=== PATIENT | female | born 1960 | race Caucasian/White ===

== ENCOUNTER 2023-01-30 15:20 | Emergency (ER) | payer SELFPAY ==
[~2023-01-30] VITALS: Ht 162.6 cm; Wt 75.0 kg
[2023-01-30 15:30] VITALS: BP 155/83
[2023-01-30] MEDS ORDERED: OMEP10 PO (15:32)
[2023-01-30] MEDS ORDERED: ATOR10TA PO (15:32)
[2023-01-30] MEDS ORDERED: SULF-261 PO (15:42)
== END 2023-01-30 17:33 | disposition home or self-care (01) ==
LOC: EMS 15:22
DX: L03.113 Cellulitis of right upper limb (principal); L02.413 Cutaneous abscess of right upper limb; E11.9 Type 2 diabetes mellitus without complications; I10 Essential (primary) hypertension; F17.210 Nicotine dependence, cigarettes, uncomplicated; F12.90 Cannabis use, unspecified, uncomplicated; Z98.890 Other specified postprocedural states; Z76.0 Encounter for issue of repeat prescription
CPT/HCPCS: 99283; Z7502

== ENCOUNTER 2023-02-01 18:39 | Inpatient (IN) | payer MEDICARE ==
[~2023-02-01] VITALS: Ht 162.6 cm; Wt 66.8 kg
[~2023-02-01 18:39] MED LIST: ATOR10TA PO; OMEP10 PO; SULF-261 PO
[2023-02-01] MEDS ORDERED: PERMETHRIN 5% 60 GM CREAM TP ONE (20:30)
[2023-02-02 00:51] LABS: AMPHET/METH SCREEN,URINE NEGATIVE (NEGATIVE); BARBITURATE SCREEN, URINE NEGATIVE (NEGATIVE); BENZODIAZEPINES SCREEN,URINE NEGATIVE (NEGATIVE); CANNABINOID SCREEN,URINE POSITIVE (NEGATIVE); COCAINE SCREEN,URINE NEGATIVE (NEGATIVE); METHADONE SCREEN, URINE NEGATIVE (NEGATIVE); OPIATE SCREEN,URINE NEGATIVE (NEGATIVE); PHENCYCLIDINE SCREEN,URINE NEGATIVE (NEGATIVE)
[2023-02-02] MEDS ORDERED: HALOPERIDOL 5 MG TABLET PO ONE (01:45)
[2023-02-02] MEDS ORDERED: DiphenhydrAMINE HCL 25 MG CAPSULE PO ONE (01:45)
[2023-02-02] MEDS ORDERED: LORazepam 2 MG TABLET PO ONE (01:45)
[2023-02-02 01:58] LABS: COVID AG,FIA SOURCE NASOPHARYNGEAL
[2023-02-02] MEDS ORDERED: ALBUTEROL SULFATE HFA 90 MCG/PUFF 8 GM INHALER IH ONE (02:45)
[2023-02-02 03:13] LABS: BASOPHILS % (AUTO) 1.1 % (0.0-2.0); EOSINOPHILS % (AUTO) 3.1 % (1.0-6.0); HEMOGLOBIN 12.3 g/dL (12.0-16.0); LYMPHOCYTES # (AUTO) 3.8 K/uL (1.0-4.8); LYMPHOCYTES % (AUTO) 45.8 % (22.0-44.0); MEAN CORPUSCULAR HEMOGLOBIN 28.6 pg (26.0-34.0); MEAN CORPUSCULAR HGB CONC 33.3 G/dL (31.0-37.0); MEAN CORPUSCULAR VOLUME 86 fL (80-100); MONOCYTES # (AUTO) 0.6 K/uL (0.1-1.0); MONOCYTES % (AUTO) 7.5 % (2.0-9.0); NEUTROPHILS # (AUTO) 3.5 K/uL (1.8-7.7); NEUTROPHILS % (AUTO) 42.5 % (40.0-70.0); PLATELET COUNT (AUTO) 372 K/uL (150-450); RED CELL DISTRIBUTION WIDTH 15.2 % (11.5-14.5)
[2023-02-02 03:29] LABS: ANION GAP 5 mmol/L (8-16); CALCIUM, TOTAL 8.8 mg/dL (8.8-10.5); CARBON DIOXIDE 29 mmol/L (22-29); CHLORIDE 102 mmol/L (98-107); CREATININE 1.05 mg/dL (0.60-1.30); GLOMERULAR FILTR. RATE CALC 53 mL/min (>60); GLUCOSE,RANDOM 197 mg/dL (70-110); POTASSIUM 4.3 mmol/L (3.5-5.1); SODIUM SERUM 136 mmol/L (136-145)
[2023-02-02 03:31] LABS: ALANINE AMINOTRANSFERASE 21 U/L (12-78); ALBUMIN 2.8 g/dL (3.4-5.0); ALKALINE PHOSPHATASE 91 U/L (46-116); ASPARTATE AMINOTRANSFERASE 18 U/L (15-37); BILIRUBIN,TOTAL 0.4 mg/dL (0.1-1.0); TOTAL PROTEIN, SERUM 6.7 g/dL (6.4-8.2)
[2023-02-02 04:49] LABS: APPEARANCE,URINE CLEAR (CLEAR); BILIRUBIN,URINE NEGATIVE (NEGATIVE); GLUCOSE, URINE (UA) 70-100 mg/dL (NEGATIVE); KETONES,URINE NEGATIVE (NEGATIVE); LEUKOCYTE ESTERASE ,URINE NEGATIVE (NEGATIVE); NITRATE,URINE NEGATIVE (NEGATIVE); OCCULT BLOOD,URINE NEGATIVE (NEGATIVE); PROTEIN,URINE NEGATIVE (NEGATIVE); SPECIFIC GRAVITIY, URINE 1.019 (1.003-1.030); UROBILINOGEN,URINE <=1.0 mg/dL (<=1.0)
[2023-02-02 05:00] LABS: BACTERIA,URINE None Seen /HPF (None Seen); RBC,URINE None Seen /HPF (0-2); SQUAMOUS EPITHELIAL CELL,UR Few /LPF (None Seen); WBC,URINE None Seen /HPF (0-5)
[2023-02-02 16:20] VITALS: BP 124/70
[2023-02-02] MEDS ORDERED: MAG HYDROX/AL HYDROX/SIMETH ES 30 ML SUSPENSION UDCUP PO PRN (16:30)
[2023-02-02] MEDS ORDERED: LOPERAMIDE HCL 2 MG CAPSULE PO PRN (16:30)
[2023-02-02] MEDS ORDERED: GLUCAGON,HUMAN RECOMBINANT 1 MG VIAL IM PRN (16:30)
[2023-02-02] MEDS ORDERED: BACITRACIN 28 GM OINTMENT TP PRN (16:30)
[2023-02-02] MEDS ORDERED: OMEPRAZOLE 20 MG CAPSULE PO PRN (16:30)
[2023-02-02] MEDS ORDERED: GuaiFENesin/D-METHORPHAN/PHENYLEPH 5 ML LIQUID ORAL.SYG PO PRN (16:30)
[2023-02-02] MEDS ORDERED: DOCUSATE SODIUM 100 MG CAPSULE PO PRN (16:30)
[2023-02-02] MEDS ORDERED: CloNIDine HCL 0.1 MG TABLET PO PRN (16:30)
[2023-02-02] MEDS ORDERED: PETROLATUM,WHITE 28 GM JELLY TP PRN (16:30)
[2023-02-02] MEDS ORDERED: MAGNESIUM HYDROXIDE SUSPENSION 30 ML UDCUP PO PRN (16:30)
[2023-02-02] MEDS: CEPHALEXIN MONOHYDRATE 500 MG CAPSULE PO SCH (16:41)
[2023-02-02] MEDS: METOPROLOL TARTRATE 25 MG TABLET PO SCH (16:42)
[2023-02-02] MEDS: ALBUTEROL SULFATE HFA 90 MCG/PUFF 8 GM INHALER IH PRN (16:42)
[2023-02-02] MEDS: NICOTINE 21 MG/24 HOUR PATCH TD SCH (16:42)
[2023-02-02] MEDS: MetFORMIN HCL 500 MG TABLET PO SCH (16:42)
[2023-02-02] MEDS: IBUPROFEN 600 MG TABLET PO PRN (16:42)
[2023-02-02] MEDS ORDERED: PNEUMOCOCCAL VACCINE POLYVALENT 0.5 ML VIAL [PPSV23] IM. ONE (16:45)
[2023-02-02] MEDS: INSULIN LISPRO 100 UNITS/ML SQ PRN ×2 (16:54→20:27)
[2023-02-02 17:06] LABS: GLUCOMETER DEV NAME(LOC) BV2X.2; GLUCOSE,POINT OF CARE 196 MG/DL (70-110)
[2023-02-02 20:05] VITALS: BP 118/68
[2023-02-02] MEDS: ATORVASTATIN CALCIUM 20 MG TABLET PO SCH (20:18)
[2023-02-02 20:26] LABS: GLUCOMETER DEV NAME(LOC) BV2X.2; GLUCOSE,POINT OF CARE 164 MG/DL (70-110)
[2023-02-03 04:15] VITALS: BP 130/82
[2023-02-03] MEDS: IBUPROFEN 600 MG TABLET PO PRN ×2 (04:19→11:13)
[2023-02-03] MEDS: ALBUTEROL SULFATE HFA 90 MCG/PUFF 8 GM INHALER IH PRN ×2 (04:31→11:59)
[2023-02-03 06:21] LABS: GLUCOMETER DEV NAME(LOC) BV2X.2; GLUCOSE,POINT OF CARE 162 MG/DL (70-110)
[2023-02-03] MEDS: INSULIN LISPRO 100 UNITS/ML SQ PRN ×3 (06:36→16:27)
[2023-02-03] MEDS: MetFORMIN HCL 500 MG TABLET PO SCH ×2 (06:37→16:21)
[2023-02-03] MEDS: ASPIRIN 81 MG DR TABLET PO SCH (08:26)
[2023-02-03] MEDS: CEPHALEXIN MONOHYDRATE 500 MG CAPSULE PO SCH ×3 (08:26→16:20)
[2023-02-03] MEDS: METOPROLOL TARTRATE 25 MG TABLET PO SCH ×2 (08:26→16:20)
[2023-02-03] MEDS: NICOTINE 21 MG/24 HOUR PATCH TD SCH (08:27)
[2023-02-03] MEDS: BACITRACIN 28 GM OINTMENT TP SCH ×2 (08:27→16:21)
[2023-02-03] MEDS: DiphenhydrAMINE HCL 25 MG CAPSULE PO PRN (08:27)
[2023-02-03 08:42] VITALS: BP 133/70
[2023-02-03 12:21] LABS: GLUCOMETER DEV NAME(LOC) BV2X.2; GLUCOSE,POINT OF CARE 222 MG/DL (70-110)
[2023-02-03 16:01] VITALS: BP 160/89
[2023-02-03] MEDS: DIVALPROEX SODIUM 500 MG DR TABLET PO SCH (16:33)
[2023-02-03 16:41] LABS: GLUCOMETER DEV NAME(LOC) BV2X.2; GLUCOSE,POINT OF CARE 148 MG/DL (70-110)
[2023-02-03 20:06] VITALS: BP 140/82
[2023-02-03] MEDS: ATORVASTATIN CALCIUM 20 MG TABLET PO SCH (20:14)
[2023-02-03] MEDS: ZOLPIDEM TARTRATE 10 MG TABLET PO PRN (20:14)
[2023-02-03] MEDS: ACETAMINOPHEN 325 MG TABLET PO PRN (22:12)
[2023-02-04] MEDS: IBUPROFEN 600 MG TABLET PO PRN ×2 (04:28→13:39)
[2023-02-04] MEDS: LORazepam 2 MG TABLET PO PRN ×2 (04:49→12:39)
[2023-02-04] MEDS: INSULIN LISPRO 100 UNITS/ML SQ PRN ×3 (06:57→17:17)
[2023-02-04] MEDS: MetFORMIN HCL 500 MG TABLET PO SCH ×2 (07:02→16:11)
[2023-02-04] MEDS: DiphenhydrAMINE HCL 25 MG CAPSULE PO PRN (07:02)
[2023-02-04 07:15] LABS: GLUCOMETER DEV NAME(LOC) BV2X.2; GLUCOSE,POINT OF CARE 171 MG/DL (70-110)
[2023-02-04 08:12] VITALS: BP 148/81
[2023-02-04] MEDS: DIVALPROEX SODIUM 500 MG DR TABLET PO SCH ×2 (09:00→16:53)
[2023-02-04] MEDS: CEPHALEXIN MONOHYDRATE 500 MG CAPSULE PO SCH ×3 (09:46→16:11)
[2023-02-04] MEDS: METOPROLOL TARTRATE 25 MG TABLET PO SCH ×2 (09:46→16:11)
[2023-02-04] MEDS: ARIPiprazole 15 MG TABLET PO SCH (09:46)
[2023-02-04] MEDS: NICOTINE 21 MG/24 HOUR PATCH TD SCH (09:46)
[2023-02-04] MEDS: ASPIRIN 81 MG DR TABLET PO SCH (09:46)
[2023-02-04] MEDS: BACITRACIN 28 GM OINTMENT TP SCH ×2 (09:48→16:14)
[2023-02-04] MEDS: ACETAMINOPHEN 325 MG TABLET PO PRN ×2 (11:20→19:48)
[2023-02-04 11:41] LABS: GLUCOMETER DEV NAME(LOC) BV2X.2; GLUCOSE,POINT OF CARE 190 MG/DL (70-110)
[2023-02-04] MEDS: ALBUTEROL SULFATE HFA 90 MCG/PUFF 8 GM INHALER IH PRN ×2 (12:39→19:44)
[2023-02-04 17:46] LABS: GLUCOMETER DEV NAME(LOC) BV2X.2; GLUCOSE,POINT OF CARE 202 MG/DL (70-110)
[2023-02-04] MEDS: ATORVASTATIN CALCIUM 20 MG TABLET PO SCH (21:00)
[2023-02-04 21:20] VITALS: BP 140/87
[2023-02-05] MEDS: LORazepam 2 MG TABLET PO PRN (06:05)
[2023-02-05 06:11] LABS: GLUCOMETER DEV NAME(LOC) BV2X.2; GLUCOSE,POINT OF CARE 91 MG/DL (70-110)
[2023-02-05] MEDS: MetFORMIN HCL 500 MG TABLET PO SCH ×2 (06:28→16:31)
[2023-02-05 09:30] VITALS: BP 132/84
[2023-02-05] MEDS: METOPROLOL TARTRATE 25 MG TABLET PO SCH ×2 (09:34→16:31)
[2023-02-05] MEDS: CEPHALEXIN MONOHYDRATE 500 MG CAPSULE PO SCH ×3 (09:34→16:31)
[2023-02-05] MEDS: DIVALPROEX SODIUM 500 MG DR TABLET PO SCH ×2 (09:34→16:31)
[2023-02-05] MEDS: NICOTINE 21 MG/24 HOUR PATCH TD SCH (09:35)
[2023-02-05] MEDS: ASPIRIN 81 MG DR TABLET PO SCH (09:35)
[2023-02-05] MEDS: ARIPiprazole 15 MG TABLET PO SCH (09:35)
[2023-02-05] MEDS: BACITRACIN 28 GM OINTMENT TP SCH ×2 (09:35→16:41)
[2023-02-05] MEDS: ACETAMINOPHEN 325 MG TABLET PO PRN ×2 (09:55→16:32)
[2023-02-05] MEDS: IBUPROFEN 600 MG TABLET PO PRN (12:13)
[2023-02-05] MEDS: ALBUTEROL SULFATE HFA 90 MCG/PUFF 8 GM INHALER IH PRN (12:14)
[2023-02-05] MEDS: HALOPERIDOL 5 MG TABLET PO PRN (12:50)
[2023-02-05 16:30] VITALS: BP 126/90
[2023-02-05 16:31] LABS: GLUCOMETER DEV NAME(LOC) BV2X.2; GLUCOSE,POINT OF CARE 145 MG/DL (70-110)
[2023-02-05] MEDS: DiphenhydrAMINE HCL 25 MG CAPSULE PO PRN (16:31)
[2023-02-05] MEDS: INSULIN LISPRO 100 UNITS/ML SQ PRN ×2 (16:39→20:19)
[2023-02-05] MEDS: ATORVASTATIN CALCIUM 20 MG TABLET PO SCH (20:06)
[2023-02-05 20:07] VITALS: BP 126/90
[2023-02-05 23:31] LABS: GLUCOMETER DEV NAME(LOC) BV2X.2; GLUCOSE,POINT OF CARE 150 MG/DL (70-110)
[2023-02-06] MEDS: MetFORMIN HCL 500 MG TABLET PO SCH ×2 (06:14→16:27)
[2023-02-06] MEDS: INSULIN LISPRO 100 UNITS/ML SQ PRN ×4 (06:26→20:44)
[2023-02-06 06:41] LABS: GLUCOMETER DEV NAME(LOC) BV2X.2; GLUCOSE,POINT OF CARE 140 MG/DL (70-110)
[2023-02-06 08:26] VITALS: BP 139/76
[2023-02-06] MEDS: ASPIRIN 81 MG DR TABLET PO SCH (08:35)
[2023-02-06] MEDS: ARIPiprazole 15 MG TABLET PO SCH (08:35)
[2023-02-06] MEDS: DIVALPROEX SODIUM 500 MG DR TABLET PO SCH ×2 (08:35→16:26)
[2023-02-06] MEDS: CEPHALEXIN MONOHYDRATE 500 MG CAPSULE PO SCH ×2 (08:35→12:19)
[2023-02-06] MEDS: METOPROLOL TARTRATE 25 MG TABLET PO SCH ×2 (08:35→16:26)
[2023-02-06] MEDS: NICOTINE 21 MG/24 HOUR PATCH TD SCH (08:42)
[2023-02-06] MEDS: BACITRACIN 28 GM OINTMENT TP SCH ×2 (09:01→16:34)
[2023-02-06] MEDS: DiphenhydrAMINE HCL 25 MG CAPSULE PO PRN (09:05)
[2023-02-06] MEDS: LORazepam 2 MG TABLET PO PRN ×2 (09:05→13:30)
[2023-02-06 11:41] LABS: GLUCOMETER DEV NAME(LOC) BV2X.2; GLUCOSE,POINT OF CARE 200 MG/DL (70-110)
[2023-02-06] MEDS: IBUPROFEN 600 MG TABLET PO PRN (16:26)
[2023-02-06 16:27] VITALS: BP 133/81
[2023-02-06 16:31] LABS: GLUCOMETER DEV NAME(LOC) BV2X.2; GLUCOSE,POINT OF CARE 161 MG/DL (70-110)
[2023-02-06 20:26] LABS: GLUCOMETER DEV NAME(LOC) BV2X.2; GLUCOSE,POINT OF CARE 149 MG/DL (70-110)
[2023-02-06] MEDS: ATORVASTATIN CALCIUM 20 MG TABLET PO SCH (20:31)
[2023-02-06] MEDS: ZOLPIDEM TARTRATE 10 MG TABLET PO PRN (20:49)
[2023-02-06 20:55] VITALS: BP 133/81
[2023-02-07 06:30] LABS: GLUCOMETER DEV NAME(LOC) BV2X.2; GLUCOSE,POINT OF CARE 131 MG/DL (70-110)
[2023-02-07] MEDS: MetFORMIN HCL 500 MG TABLET PO SCH ×2 (06:36→17:03)
[2023-02-07 08:05] VITALS: BP 141/96
[2023-02-07 08:30] VITALS: BP 138/89
[2023-02-07] MEDS: DIVALPROEX SODIUM 500 MG DR TABLET PO SCH ×2 (09:33→17:03)
[2023-02-07] MEDS: METOPROLOL TARTRATE 25 MG TABLET PO SCH ×2 (09:34→17:08)
[2023-02-07] MEDS: NICOTINE 21 MG/24 HOUR PATCH TD SCH (09:34)
[2023-02-07] MEDS: ARIPiprazole 15 MG TABLET PO SCH (09:34)
[2023-02-07] MEDS: BACITRACIN 28 GM OINTMENT TP SCH ×2 (09:35→17:33)
[2023-02-07] MEDS: IBUPROFEN 600 MG TABLET PO PRN (09:43)
[2023-02-07] MEDS: ASPIRIN 81 MG DR TABLET PO SCH (09:44)
[2023-02-07 11:26] LABS: GLUCOMETER DEV NAME(LOC) BV2X.2; GLUCOSE,POINT OF CARE 204 MG/DL (70-110)
[2023-02-07] MEDS: INSULIN LISPRO 100 UNITS/ML SQ PRN ×2 (11:35→17:02)
[2023-02-07] MEDS: ALBUTEROL SULFATE HFA 90 MCG/PUFF 8 GM INHALER IH PRN (12:32)
[2023-02-07] MEDS: LORazepam 2 MG TABLET PO PRN ×2 (13:31→17:43)
[2023-02-07 16:36] LABS: GLUCOMETER DEV NAME(LOC) BV2X.2; GLUCOSE,POINT OF CARE 196 MG/DL (70-110)
[2023-02-07] MEDS: ACETAMINOPHEN 325 MG TABLET PO PRN (17:43)
[2023-02-07 20:30] VITALS: BP 132/76
[2023-02-07] MEDS: ATORVASTATIN CALCIUM 20 MG TABLET PO SCH (21:39)
[2023-02-07 22:11] LABS: GLUCOMETER DEV NAME(LOC) BV2X.2; GLUCOSE,POINT OF CARE 95 MG/DL (70-110)
[2023-02-08 06:06] LABS: GLUCOMETER DEV NAME(LOC) BV2X.2; GLUCOSE,POINT OF CARE 150 MG/DL (70-110)
[2023-02-08] MEDS: MetFORMIN HCL 500 MG TABLET PO SCH ×2 (06:20→16:37)
[2023-02-08 08:24] VITALS: BP 121/73
[2023-02-08] MEDS: METOPROLOL TARTRATE 25 MG TABLET PO SCH ×2 (08:37→16:37)
[2023-02-08] MEDS: ASPIRIN 81 MG DR TABLET PO SCH (08:37)
[2023-02-08] MEDS: ARIPiprazole 15 MG TABLET PO SCH (08:37)
[2023-02-08] MEDS: DIVALPROEX SODIUM 500 MG DR TABLET PO SCH ×2 (08:37→16:37)
[2023-02-08] MEDS: BACITRACIN 28 GM OINTMENT TP SCH ×2 (08:40→16:47)
[2023-02-08] MEDS: NICOTINE 21 MG/24 HOUR PATCH TD SCH (08:52)
[2023-02-08] MEDS: ONDANSETRON HCL 4 MG TABLET PO PRN ×2 (10:19→19:41)
[2023-02-08 12:01] LABS: GLUCOMETER DEV NAME(LOC) BV2X.2; GLUCOSE,POINT OF CARE 118 MG/DL (70-110)
[2023-02-08] MEDS: HALOPERIDOL 5 MG TABLET PO PRN (12:38)
[2023-02-08] MEDS: ACETAMINOPHEN 325 MG TABLET PO PRN (12:38)
[2023-02-08 16:36] VITALS: BP 149/76
[2023-02-08 16:36] LABS: GLUCOMETER DEV NAME(LOC) BV2X.2; GLUCOSE,POINT OF CARE 195 MG/DL (70-110)
[2023-02-08] MEDS: INSULIN LISPRO 100 UNITS/ML SQ PRN ×2 (16:45→20:36)
[2023-02-08] MEDS: IBUPROFEN 600 MG TABLET PO PRN (17:30)
[2023-02-08 20:07] VITALS: BP 138/72
[2023-02-08] MEDS: ATORVASTATIN CALCIUM 20 MG TABLET PO SCH (20:27)
[2023-02-08] MEDS: DiphenhydrAMINE HCL 25 MG CAPSULE PO PRN (20:28)
[2023-02-08 20:36] LABS: GLUCOMETER DEV NAME(LOC) BV2X.2; GLUCOSE,POINT OF CARE 183 MG/DL (70-110)
[2023-02-09 02:00] VITALS: BP 128/79
[2023-02-09] MEDS: IBUPROFEN 600 MG TABLET PO PRN (02:07)
[2023-02-09 06:21] LABS: GLUCOMETER DEV NAME(LOC) BV2X.2; GLUCOSE,POINT OF CARE 148 MG/DL (70-110)
[2023-02-09] MEDS: MetFORMIN HCL 500 MG TABLET PO SCH ×2 (06:46→16:44)
[2023-02-09] MEDS: INSULIN LISPRO 100 UNITS/ML SQ PRN ×3 (06:58→20:59)
[2023-02-09 08:46] VITALS: BP 134/72
[2023-02-09] MEDS: METOPROLOL TARTRATE 25 MG TABLET PO SCH ×2 (08:51→16:47)
[2023-02-09] MEDS: ASPIRIN 81 MG DR TABLET PO SCH (08:51)
[2023-02-09] MEDS: DIVALPROEX SODIUM 500 MG DR TABLET PO SCH ×2 (08:51→16:44)
[2023-02-09] MEDS: ARIPiprazole 15 MG TABLET PO SCH (08:51)
[2023-02-09] MEDS: BACITRACIN 28 GM OINTMENT TP SCH ×2 (08:57→16:51)
[2023-02-09] MEDS: NICOTINE 21 MG/24 HOUR PATCH TD SCH (08:57)
[2023-02-09 09:29] LABS: APPEARANCE,URINE CLEAR (CLEAR); BILIRUBIN,URINE NEGATIVE (NEGATIVE); GLUCOSE, URINE (UA) NEGATIVE (NEGATIVE); KETONES,URINE NEGATIVE (NEGATIVE); LEUKOCYTE ESTERASE ,URINE NEGATIVE (NEGATIVE); NITRATE,URINE NEGATIVE (NEGATIVE); OCCULT BLOOD,URINE NEGATIVE (NEGATIVE); PROTEIN,URINE NEGATIVE (NEGATIVE); UROBILINOGEN,URINE <=1.0 mg/dL (<=1.0)
[2023-02-09 09:36] LABS: BACTERIA,URINE None Seen /HPF (None Seen); RBC,URINE None Seen /HPF (0-2); WBC,URINE None Seen /HPF (0-5)
[2023-02-09] MEDS: LORazepam 2 MG TABLET PO PRN ×2 (10:16→16:50)
[2023-02-09 12:11] LABS: GLUCOMETER DEV NAME(LOC) BV2X.2; GLUCOSE,POINT OF CARE 148 MG/DL (70-110)
[2023-02-09 17:11] LABS: GLUCOMETER DEV NAME(LOC) BV2X.2; GLUCOSE,POINT OF CARE 140 MG/DL (70-110)
[2023-02-09] MEDS: ATORVASTATIN CALCIUM 20 MG TABLET PO SCH (20:13)
[2023-02-09 20:30] VITALS: BP 135/85
[2023-02-09] MEDS: ACETAMINOPHEN 325 MG TABLET PO PRN (21:55)
[2023-02-09] MEDS: ZOLPIDEM TARTRATE 10 MG TABLET PO PRN (22:25)
[2023-02-09 23:26] LABS: GLUCOMETER DEV NAME(LOC) BV2X.2; GLUCOSE,POINT OF CARE 177 MG/DL (70-110)
[2023-02-10 06:21] LABS: GLUCOMETER DEV NAME(LOC) BV2X.2; GLUCOSE,POINT OF CARE 136 MG/DL (70-110)
[2023-02-10] MEDS: MetFORMIN HCL 500 MG TABLET PO SCH (06:28)
[2023-02-10] MEDS: IBUPROFEN 600 MG TABLET PO PRN (08:23)
[2023-02-10] MEDS: LORazepam 2 MG TABLET PO PRN (08:24)
[2023-02-10] MEDS: ARIPiprazole 15 MG TABLET PO SCH (08:24)
[2023-02-10] MEDS: DIVALPROEX SODIUM 500 MG DR TABLET PO SCH (08:25)
[2023-02-10] MEDS: METOPROLOL TARTRATE 25 MG TABLET PO SCH (08:25)
[2023-02-10] MEDS: ASPIRIN 81 MG DR TABLET PO SCH (08:25)
[2023-02-10] MEDS: NICOTINE 21 MG/24 HOUR PATCH TD SCH (08:25)
[2023-02-10] MEDS: BACITRACIN 28 GM OINTMENT TP SCH (08:31)
[2023-02-10 09:08] VITALS: BP 120/68
[2023-02-10] MEDS: INSULIN LISPRO 100 UNITS/ML SQ PRN (11:31)
[2023-02-10 11:41] LABS: GLUCOMETER DEV NAME(LOC) BV2X.2; GLUCOSE,POINT OF CARE 169 MG/DL (70-110)
[2023-02-10] MEDS ORDERED: ARIP15TA2 PO (13:23)
[2023-02-10] MEDS ORDERED: DIVA-112 PO (13:23)
[2023-02-10] MEDS ORDERED: METO25 PO (13:24)
[2023-02-10] MEDS ORDERED: METF-1211 PO (13:24)
[2023-02-10] MEDS ORDERED: ASPI81TA87 PO (13:25)
[2023-02-10] MEDS ORDERED: ATOR40TA28 PO (13:25)
== END 2023-02-10 16:00 | disposition home or self-care (01) | DRG 885 ==
LOC: EMS 18:44 → B2X 02-02 14:50
PROVIDERS: ADMIT Psychiatry & Neurology Psychiatry; ATTEND Psychiatry & Neurology Psychiatry
DX: F20.9 Schizophrenia, unspecified (principal); J44.1 Chronic obstructive pulmonary disease with (acute) exacerbation; R45.851 Suicidal ideations; E11.9 Type 2 diabetes mellitus without complications; Z20.822 Contact with and (suspected) exposure to COVID-19; I10 Essential (primary) hypertension; F11.10 Opioid abuse, uncomplicated; I25.10 Atherosclerotic heart disease of native coronary artery without angina pectoris; E78.5 Hyperlipidemia, unspecified; G47.00 Insomnia, unspecified; B86 Scabies; F12.90 Cannabis use, unspecified, uncomplicated; F41.9 Anxiety disorder, unspecified; L08.9 Local infection of the skin and subcutaneous tissue, unspecified; Z79.899 Other long term (current) drug therapy; Z98.891 History of uterine scar from previous surgery; Z59.00 Homelessness unspecified; Z87.891 Personal history of nicotine dependence
CPT/HCPCS: 80053; 80307; 81001; 81003; 82962; 85025; 99285; G0480; J3535; Q0162